=== PATIENT | male | born 1955 | race African-American/Black ===

== ENCOUNTER 2018-01-19 10:21 | Inpatient (IN) | payer BC ==
[2018-01-19] MEDS ORDERED: Pantoprazole 40 MG VIAL ONE (12:26)
[2018-01-19 12:27] LABS: CKMB 8.7 ng/mL (0-6.6); Troponin I 0.703 ng/mL (< 0.028)
[2018-01-19] MEDS ORDERED: Cefepime 2 GM in Sodium Chloride 0.9% 100 ML IVPB SCH (12:30)
[2018-01-19 12:42] LABS: White Blood Cell (WBC) Count 7.6 thou/uL (4.8-10.8)
[2018-01-19 12:43] LABS: Hemoglobin 5.2 g/dL (14.0-18.0); Mean Corpuscular HGB CONC 31.4 g/dL (32.0-36.0); Mean Corpuscular Hemoglobin 32.3 pg (27.0-31.0); Mean Platelet Volume 6.4 fL (7.4-10.4); Platelet Count 195 thou/uL (130-400); RBC Distribution Width 15.1 % (11.5-14.5)
[2018-01-19 12:46] LABS: Anisocytosis MODERATE=16-30 cells (100X) (0-5/hpf); Band 5 % (5-11); Eosinophils 1 % (0-10); Lymphocytes 31 % (21-51); MDiff Complete? YES; Monocytes 8 % (0-10); Neutrophil 55 % (42-75)
[2018-01-19 12:47] LABS: Hypochromia MODERATE=16-30 cells (100X) (0-5/hpf); Large Platelets SLIGHT; Polychromasia SLIGHT = 2-3 cells (100X) (0-2/hpf)
--- NOTE | 2018-01-19 13:08 | RAD ---
CHEST 1 VIEW: HISTORY: Dyspnea. FINDINGS: Cardiac silhouette is magnified by projection. Pulmonary vasculature upper limits of normal. Medias tinum is midline. No lobar consolidation or evidence of pneumothorax. Old left rib fractures. Card iac monitor leads overlie the chest. IMPRESSION: No active cardiopulmonary abnormalities are demonstrated. POS: VANDANAH
[2018-01-19] MEDS ORDERED: Albuterol Sulfate 2.5 mg/3 ml Neb NEB PRN (13:58)
--- NOTE | 2018-01-19 14:41 | PDOC.FPRHP ---
- History of Present Illness Chief Complaint: SOB History of Present Illness: Mr. Sanchez presents to the ED with continued shortness of breath with activity and non-productive cough after being treated for CAP with azithromycin outpatient. He had some non-bloody diarrhea a week ago as well. He denies any chest pain, palpitations, syncope, weakness, fever chills, abdominal pain, or melena. He has never had a colonoscopy. ED Course: IV protonix, CBC, CMP, Trop, CXR, Cefepime, Protonix - Allergies/Adverse Reactions Allergies Allergy/AdvReac Type Severity Reaction Status Date / Time No Known Drug Allergies Allergy Verified 01/19/18 12:12 - Home Medications Medication Instructions Recorded Confirmed Type Amlodipine Besylate/Benazepril 1 cap PO DAILY 01/19/18 01/19/18 History [amLODIPine Besylate/Benazepril] Pravastatin Sodium [Pravachol] 1 tab PO HS 01/19/18 01/19/18 History Triamterene/Hydrochlorothiazid 1 tab PO DAILY 01/19/18 01/19/18 History [Dyazide] cloNIDine HCl 1 tab PO TID 01/19/18 01/19/18 History - History PMHx: HTN, HLD PSHx: none FHx: DMII Social: 30 pk year smoking, beer a day, no drugs - Review of Systems General: denies: fever/chills, weight/appetite/sleep changes Eyes: denies: vision changes ENT: reports: nasal congestion. denies: rhinorrhea Respiratory: reports: cough, congestion, shortness of breath, exercise intolerance Cardiovascular: denies: chest pain, palpitation, edema Gastrointestinal: reports: diarrhea. denies: nausea, vomiting, abdominal pain Genitourinary: denies: incontinence, dysuria, polyuria Skin: denies: rashes, lesions Musculoskeletal: denies: pain, tenderness Neurological: denies: numbness, syncope, weakness - Vital signs BP: [140/83] HR: [109] RR: [20] Tmax: [98.3] Pox: [97]% on [RA] Wt: [114kg] - Physical Exam Constitutional: well developed, other (labored breathing) HEENT: normocephalic and atraumatic, grossly normal vision, grossly normal hearing, MMM Neck: supple, trachea midline Chest: no-tender to palpation, no lesions Heart: RRR (tachycardic), normal S1/S2, no murmurs/rubs/gallops, no edema Lungs: no respiratory distress, other (L sided crackles, diffuse mild wheezing and diminished breath sounds) Abdomen: soft, non-tender, no masses/distention Musculoskeletal: normal structure, normal tone, ROM grossly normal Neurological: no focal deficit, normal sensation Skin: no rash/lesions, good turgor Heme/Lymphatic: no unusual bruising or bleeding, no purpura, no petechia FMR H&P: Results - Labs Result Diagrams: 01/19/18 10:50 01/19/18 10:50 Lab results: WBC 7.6 thou/uL (4.8-10.8) 01/19/18 10:50 Hgb 5.2 g/dL (14.0-18.0) L* 01/19/18 10:50 Hct 16.5 % (42.0-52.0) L 01/19/18 10:50 MCV 103.0 fL (78.0-98.0) H 01/19/18 10:50 Plt Count 195 thou/uL (130-400) 01/19/18 10:50 Band Neuts % (Manual) 5 % (5-11) 01/19/18 10:50 CK-MB (CK-2) 8.7 ng/mL (0-6.6) H* 01/19/18 10:50 FMR H&P: A/P - Problem List (1) COPD exacerbation Current Visit: Yes Status: Acute Code(s): J44.1 - CHRONIC OBSTRUCTIVE PULMONARY DISEASE W (ACUTE) EXACERBATION (2) Pneumonia Current Visit: Yes Status: Acute Code(s): J18.9 - PNEUMONIA, UNSPECIFIED ORGANISM (3) Anemia Current Visit: Yes Status: Acute Code(s): D64.9 - ANEMIA, UNSPECIFIED (4) Elevated troponin Current Visit: Yes Status: Acute Code(s): R74.8 - ABNORMAL LEVELS OF OTHER SERUM ENZYMES (5) HTN (hypertension) Current Visit: Yes Status: Acute Code(s): I10 - ESSENTIAL (PRIMARY) HYPERTENSION (6) HLD (hyperlipidemia) Current Visit: Yes Status: Acute Code(s): E78.5 - HYPERLIPIDEMIA, UNSPECIFIED - Plan COPD exacerbation - most likely considering lung exam and smoking history - Levaquin, Duonebs Q4H, ventolin q2hr prn, O2 prn, Prednisone - monitor respiratory status Pneumonia - failed outpatient treatment, suspicious CXR - DC azithromycin, start levaquin - Monitor CBC, obtain procal Symptomatic Anemia - unsure of cause, deficiency vs blood loss - Retic/smear/ferritin, daily CBC - FOBT pos, consider GI consult - T&C 2 units PRBCs, transfuse, give lasix, followed 6hrs by a hemagram - monitor on telemetry, check vs Q4hr Elevated troponin - unlikely ischemic in nature, most likely demand 2/2 anemia - Stat EKG - trend troponins HTN - continue home meds HLD - lipid panel in AM Code: full PPX: SCDs, protonix Disposition/LOS: Admit to inpatient telemetry for evaluation of anemia, transfuse blood products , treat COPD exac/pna FMR H&P: Upper Level - Pertinent history Agree with fall internship resident history. GEN: NAD, obese CARDIO: RRR, No MRG RESP: Lungs CTAB, mild diffuse wheezes, no ronchi ABDOMEN: soft, notender, no R/G NEURO: normal strength in all extremities. No cranial nerve deficits RECTAL: observed exam without blood or dark stool. - Plan Date/Time: 01/19/18 1313 IRao , have evaluated this patient and agree with findings/plan as outlined by fall internship resident. Pertinent changes/additions are listed here. Anemia - Likely 2/2 acute blood loss as he is FOBT +, but will obtain studies to further investigate. - Initial Hb 5.9. Will order 2PRBCs and continue to trend H/H. - Admit to tele. On Protonix and NPO. Consult GI Mild COPD exacerbation - Does have a 40 yr history of smoking and diffuse wheezing on exam. Has recently been treated for CAP, so will continue antibiotics and prednisone/ albuterol nebs. - Order procal as XR showed Pleural Effusion but read as no acute process. May benefit from a dose of Lasix. Elevated troponin - Most likely demand 2/2 anemia, but will trend. - EKG Ordered. HTN - continue home meds HLD - lipid panel in AM, on Statin therapy. DISPO: inpatient Code: full PPX: Anticoag CI, SCDs, protonix Attending Addendum - Attending Addendum Date/Time: 01/19/18 [id number] I personally evaluated the patient and discussed the management with Dr. Soto. I agree with the History, Examination, Assessment and Plan documented above with any addition or exceptions noted below.
[2018-01-19] MEDS: Pantoprazole 80 MG, Admixture Fee 1 EACH in Sodium Chloride 0.9% 100 ML IVP SCH ×2 (14:43→22:20)
[2018-01-19 14:45] VITALS: BMI 39.6
[2018-01-19] MEDS: cloNIDine 0.2 MG TAB PO SCH ×2 (15:34→21:03)
[2018-01-19 16:11] LABS: ALT (SGPT) 34 U/L (8-55); AST (SGOT) 29 U/L (5-34); Albumin 3.8 g/dL (3.4-4.8); Alkaline Phosphatase 61 U/L (40-150); Anion Gap 13 mmol/L (10-20); BUN (Urea Nitrogen) 10 mg/dL (8.4-25.7); Bilirubin, Total 0.3 mg/dL (0.2-1.2); Calc. Creatinine Clearance 164 mL/min (70-130); Calcium 8.7 mg/dL (7.8-10.44); Carbon Dioxide 22 mmol/L (23-31); Chloride 107 mmol/L (98-107); Estimated GFR-MDRD Greater than 90; Globulin 2.7 g/dL (2.4-3.5); Glucose 116 mg/dL (80-115); Potassium 3.6 mmol/L (3.5-5.1); Protein, Total 6.5 g/dL (5.8-8.1); Sodium 138 mmol/L (136-145)
[2018-01-19 17:40] LABS: INR-International Normal Ratio 1.1; PTT 35.1 SEC (22.9-36.1); Prothrombin Time 14.2 SEC (12.0-14.7)
[2018-01-19 17:54] LABS: Iron Binding Capacity, Total 325 mcg/dL (261-462)
[2018-01-19 17:55] LABS: Iron 38 ug/dL (65-175)
[2018-01-19 18:16] LABS: Troponin I 0.681 ng/mL (< 0.028)
[2018-01-19] MEDS ORDERED: GoLYTELY 4,000 ml Bottle PO SCH (19:00)
[2018-01-19] MEDS ORDERED: Furosemide 40 MG/4 ML VIAL SLOW IVP SCH (19:45)
[2018-01-19 20:47] LABS: Troponin I 0.822 ng/mL (< 0.028)
[2018-01-19] MEDS: Atorvastatin Calcium 10 MG TAB PO SCH (21:02)
[2018-01-19] MEDS ORDERED: Furosemide 40 MG TAB PO SCH (22:00)
[2018-01-19 23:25] LABS: Troponin I 0.952 ng/mL (< 0.028)
[2018-01-20 01:52] LABS: Reticulocyte Count 10.5 % (0.5-1.5)
[2018-01-20 02:08] LABS: Anisocytosis SLIGHT = 6-15 cells (100X) (0-5/hpf); Band 1 % (5-11); Eosinophils 2 % (0-10); Hemoglobin 7.2 g/dL (14.0-18.0); Lymphocytes 22 % (21-51); MDiff Complete? YES; Mean Corpuscular HGB CONC 32.2 g/dL (32.0-36.0); Mean Corpuscular Hemoglobin 31.4 pg (27.0-31.0); Mean Corpuscular Volume 97.6 fL (78.0-98.0); Mean Platelet Volume 6.3 fL (7.4-10.4); Monocytes 6 % (0-10); Myelocyte 1 % (0-0); Neutrophil 68 % (42-75); Nucleated RBC 3 % (0); PLT Morphology Comment Appears Adequate; Platelet Count 188 thou/uL (130-400); Polychromasia MARKED = >4 cells (100X) (0-2/hpf); RBC Distribution Width 17.7 % (11.5-14.5); Red Blood Cell (RBC) Count 2.29 mill/uL (4.70-6.10); White Blood Cell (WBC) Count 9.3 thou/uL (4.8-10.8)
--- NOTE | 2018-01-20 02:44 | CON ---
DATE OF CONSULTATION: 01/19/2018 REASON FOR CONSULTATION: Symptomatic anemia. CONSULTING PHYSICIAN: Dr. Kevin Soto. HISTORY OF PRESENT ILLNESS: The patient is a 62-year-old -[place] male with past medical his tory of hypertension, hyperlipidemia, and tobacco abuse who initially presented with complaints of in creased cough and shortness of breath. He states that he was in his usual state of health until appr oximately 1-2 weeks ago when he experienced increased cough that prompted him to see his primary care physician. He was subsequently diagnosed with a community-acquired pneumonia and prescribed azithro mycin as an outpatient; however, his cough continued despite antibiotic administration, which then pr ompted him to seek additional health long term acute care registered nurse at [facility]. While in the ER, he was noted to have a significantly decreased H&H when compared to baseline and ultimately admitted to the [facility] for further evaluation. Upon questioning the patient, he states that his cough over the last few weeks was associated with increased shortness of breath and generalized weakness that was intermitten t in nature, but did cause some functional limitations; however, he denies any nausea, vomiting, feve rs, chills, abdominal pain, GI bleeding, dysphagia, odynophagia, weight loss, or constipation. He di d have an episode of diarrhea approximately 3-4 days ago. It was characterized he has having 2 semis olid bowel movements per day over the next 2-3 days with no special maneuvers in order to defecate. This has since improved. There was no occurrence upon interview today. REVIEW OF SYSTEMS: A 10-category review of systems was obtained with all responses negative except f or the pertinent positives as listed in the HPI. PAST MEDICAL HISTORY: As per HPI. PAST SURGICAL HISTORY: None. FAMILY HISTORY: Denies any GI malignancy. SOCIAL HISTORY: Drinks approximately 1-2 beers daily, has a [id number] smoking history, but denies any illicit drug use. OUTPATIENT MEDICATIONS: Reviewed. ALLERGIES: No known drug allergies. PHYSICAL EXAMINATION: VITAL SIGNS: Temperature is 98.4, pulse 92, blood pressure 129/60, respiratory rate 16, satting 99% on room air. GENERAL: The patient was lying in bed in no acute distress. Alert and oriented x4. HEENT: No scleral icterus noted. NECK: Supple. No JVD noted. CARDIOVASCULAR: Regular rate and rhythm with no discernible murmurs, gallops, or rubs. LUNGS: Clear to auscultation bilaterally with no discernible wheezes or rales. ABDOMEN: Normoactive bowel sounds, soft, nondistended. Mild tenderness to palpation in the midepiga stric region. EXTREMITIES: No cyanosis, clubbing, or edema. LABORATORY DATA: CBC with a white blood cell count of 7.6, hemoglobin 5.2, hematocrit 16.5, platelet s 195,000. INR 1.1. Chemistry with sodium of 138, potassium 3.6, chloride 107, CO2 of 22, BUN 10, c reatinine 0.77, glucose 116. Iron 38, TIBC 325, ferritin 73, AST 29, ALT 34, alkaline phosphatase 61 , total bilirubin 0.3, albumin 3.8. Troponin up trending from 0.68-0.82. IMAGING DATA: Chest x-ray obtained on 01/19/2018 showed no active cardiopulmonary abnormalities. ASSESSMENT AND PLAN: The patient is a 62-year-old male with past medical history of hypertension, hy perlipidemia, and tobacco abuse, presenting with symptomatic anemia. Symptomatic anemia: The patient has been struggling with a 2-week history of increased shortness of breath and cough that was initially diagnosed as a community-acquired pneumonia; however, after lack of response to antibiotic administration, he sought health care assistance at [facility] and not ed to have a significantly decreased H and H. Upon interview of the patient today, he denies any yoly ology of overt bleeding, whether would be via scan or GI tract. Upon review of his iron indices whil e his iron may be mildly low, there is no abnormality seen in TIBC or ferritin making the likelihood of a chronic process or chronic iron deficiency anemia, less likely, in addition to an elevated degre e of approximately 103. Again, leaning away from a diagnosis of iron deficiency anemia. However, gi sima his significant anemia on admission be ruled out at this time with endoscopic intervention indicated for a possible source of anemia. RECOMMENDATIONS: 1. We would continue to trend H&H and transfuse as necessary to maintain an H&H of 10/28. 2. Continue to monitor clinically for signs of active GI bleeding. 3. We will place patient on a clear liquid diet tonight with n.p.o. at midnight in preparation for b oth EGD and colonoscopy to be performed tomorrow morning. 4. If both the EGD and colonoscopy are negative for overt signs of bleeding things that can co ntribute to his anemia, I would strongly consider non-GI origin of his anemia given the macrocytic na ture and relatively normal iron indices. We will continue to follow. Please call with any additional questions.
[2018-01-20 04:29] LABS: ALT (SGPT) 35 U/L (8-55); AST (SGOT) 27 U/L (5-34); Albumin 3.8 g/dL (3.4-4.8); Alkaline Phosphatase 66 U/L (40-150); Anion Gap 14 mmol/L (10-20); BUN (Urea Nitrogen) 7 mg/dL (8.4-25.7); Calc. Creatinine Clearance 154 mL/min (70-130); Calcium 8.6 mg/dL (7.8-10.44); Carbon Dioxide 23 mmol/L (23-31); Cardiac Risk 3.9 (Less than 4.5); Chloride 106 mmol/L (98-107); Cholesterol 189 mg/dl (< 200 Desired); Estimated GFR-MDRD Greater than 90; Globulin 2.8 g/dL (2.4-3.5); Glucose 114 mg/dL (80-115); HDL Cholesterol 49 mg/dL (>60 Neg Risk); LDL Cholesterol, Calculated 118 mg/dL; Potassium 3.4 mmol/L (3.5-5.1); Protein, Total 6.6 g/dL (5.8-8.1); Sodium 140 mmol/L (136-145); Triglycerides 112 mg/dL (Less than 150)
[2018-01-20 04:31] LABS: Troponin I 1.023 ng/mL (< 0.028)
[2018-01-20 06:26] LABS: #Eosinphils 0.2 thou/uL (0.0-0.7); #Lymphocytes 1.9 thou/uL (1.20-3.40); #Monocytes 0.8 thou/uL (0.11-0.59); #Neutrophils 5.2 thou/uL (1.40-6.50); %Basophils 0.3 % (0.0-1.0); %Eosinophils 1.9 % (0.0-10.0); %Lymphocytes 23.1 % (21.0-51.0); %Monocytes 9.8 % (0.0-10.0); Anisocytosis SLIGHT = 6-15 cells (100X) (0-5/hpf); Hemoglobin 7.1 g/dL (14.0-18.0); MDiff Complete? YES; Mean Corpuscular HGB CONC 32.6 g/dL (32.0-36.0); Mean Corpuscular Hemoglobin 31.8 pg (27.0-31.0); Mean Corpuscular Volume 97.5 fL (78.0-98.0); Mean Platelet Volume 6.6 fL (7.4-10.4); Platelet Count 186 thou/uL (130-400); Polychromasia MARKED = >4 cells (100X) (0-2/hpf); RBC Distribution Width 17.4 % (11.5-14.5); Red Blood Cell (RBC) Count 2.24 mill/uL (4.70-6.10); White Blood Cell (WBC) Count 8.1 thou/uL (4.8-10.8)
--- NOTE | 2018-01-20 06:37 | PDOC.FM ---
- Subjective Subjective: Mr. Sanchez is feeling much better today, his SOB and cough have improved. He denies any chest pain, palpitations, weakness. He finished his bowel prep. - Objective Vital Signs & Weight: Vital Signs (12 hours) Temp Pulse Pulse Resp BP BP BP 01/20/18 06:28 98 16 01/20/18 04:00 99.0 F 92 18 154/56 H 01/20/18 02:23 90 16 01/19/18 23:30 98.7 F 84 16 135/75 01/19/18 22:23 92 16 01/19/18 21:03 129/60 01/19/18 20:55 98.8 F 83 18 129/60 01/19/18 20:40 98.3 F 89 20 137/64 01/19/18 19:40 98.4 F 89 17 141/65 H 01/19/18 19:11 96 16 Pulse Ox 01/20/18 06:28 100 01/20/18 04:00 96 01/20/18 02:23 110 H 01/19/18 23:30 99 01/19/18 22:23 99 01/19/18 21:03 01/19/18 20:55 99 01/19/18 20:40 99 01/19/18 19:40 100 01/19/18 19:11 98 Weight Weight 114.759 kg I&O: 01/18/18 01/19/18 01/20/18 06:59 06:59 06:59 Intake Total 6600 Output Total 1000 Balance 5600 Result Diagrams: 01/20/18 03:32 01/20/18 03:31 <Kevin Soto - Last Filed: 01/20/18 09:20> - Objective Vital Signs & Weight: Vital Signs (12 hours) Temp Pulse Resp BP Pulse Ox 01/20/18 12:20 98.6 F 99 18 151/59 H 99 01/20/18 10:18 84 16 100 01/20/18 08:46 98.8 F 98 18 144/66 H 97 01/20/18 06:28 98 16 100 01/20/18 04:00 99.0 F 92 18 154/56 H 96 01/20/18 02:23 90 16 110 H Weight Weight 114.759 kg I&O: 01/19/18 01/20/18 01/21/18 06:59 06:59 06:59 Intake Total 6600 Output Total 1000 Balance 5600 Result Diagrams: 01/20/18 03:32 01/20/18 03:31 <Pippa Martinez - Last Filed: 01/20/18 13:15> Phys Exam - Physical Examination Constitutional: NAD HEENT: moist MMs Respiratory: wheezing present (wheezing improved, decreased breath sounds b/l ) Cardiovascular: RRR, no significant murmur, no rub Gastrointestinal: soft, no distention Musculoskeletal: no edema, pulses present Neurological: non-focal, normal sensation Psychiatric: normal affect Skin: no rash <Kevin Soto - Last Filed: 01/20/18 09:20> Dx/Plan (1) COPD exacerbation Code(s): J44.1 - CHRONIC OBSTRUCTIVE PULMONARY DISEASE W (ACUTE) EXACERBATION Status: Acute (2) Pneumonia Code(s): J18.9 - PNEUMONIA, UNSPECIFIED ORGANISM Status: Acute (3) Anemia Code(s): D64.9 - ANEMIA, UNSPECIFIED Status: Acute (4) Elevated troponin Code(s): R74.8 - ABNORMAL LEVELS OF OTHER SERUM ENZYMES Status: Acute (5) HTN (hypertension) Code(s): I10 - ESSENTIAL (PRIMARY) HYPERTENSION Status: Acute (6) HLD (hyperlipidemia) Code(s): E78.5 - HYPERLIPIDEMIA, UNSPECIFIED Status: Acute - Plan Plan: COPD exacerbation - most likely considering lung exam and smoking history - Levaquin, Duonebs Q4H, ventolin q2hr prn, O2 prn, Prednisone - monitor respiratory status Pneumonia - failed outpatient treatment, suspicious CXR - DC azithromycin, start levaquin - procal neg - Monitor CBC Symptomatic Anemia - unsure of cause, deficiency vs blood loss - Macrocytic, smear pending, daily CBC - iron studies relatively normal - GI to perform upper and lower scopes today - s/p 2 units PRBC, Hb increased to 7.2 - monitor on telemetry, check vs Q4hr Elevated troponin - unlikely ischemic in nature, most likely demand 2/2 anemia - EKG WNL, no active chest pain - trend troponins, consider cards consult HTN - continue home meds HLD - lipid panel neg Code: full PPX: SCDs, protonix Dispo: GI to scope today, await results. transfuse for Hb less than 7 <Kevin Soto - Last Filed: 01/20/18 09:20> Attending Addendum - Attending Addendum Date/Time: 01/20/18 1312 I personally evaluated the patient and discussed the management with Dr. Soto I agree with the History, Examination, Assessment and Plan documented above with any addition or exceptions noted below- Patient feeling better. Finishing prep for colonoscopy. Afebrile VSS. A/P: 1) CAP with COPD exacerbation- continue abx, nebs, prednisone. 2) Anemia- macrocytic- uncertain etiology with relatively normal iron indices. Appreciate GI input. Plan for EGD/colonoscopy today to rule GI losses as cause. If negative, will check vit B12, folate and Hgb electrophoresis. <Pippa Martinez - Last Filed: 01/20/18 13:15>
[2018-01-20 07:02] LABS: Troponin I 1.095 ng/mL (< 0.028)
[2018-01-20] MEDS: Enoxaparin Sodium 40 MG/0.4 ML SYRINGE SC SCH (09:17)
[2018-01-20] MEDS: Amlodipine 5 mg/Benazepril 20 mg CAP PO SCH (09:17)
[2018-01-20] MEDS: predniSONE 20 MG TAB PO SCH (09:18)
[2018-01-20] MEDS: Triamterene/Hydrochlorothiazide 37.5 mg/25 mg Tablet PO SCH (09:18)
[2018-01-20] MEDS: cloNIDine 0.2 MG TAB PO SCH ×3 (09:18→20:54)
[2018-01-20 10:04] LABS: Troponin I 1.013 ng/mL (< 0.028)
[2018-01-20] MEDS ORDERED: Lidocaine 1% PF 5 ML VIAL ONE (11:34)
[2018-01-20] MEDS ORDERED: PROPOFOL 200 MG/20 ML VIAL ONE (11:34)
[2018-01-20 13:10] LABS: Critical Call Chem Troponin I RESULT DECREASING; Troponin I 0.932 ng/mL (< 0.028)
[2018-01-20 13:30] LABS: Folate (Folic Acid) 13.3 ng/mL (7.0-31.4)
--- NOTE | 2018-01-20 15:59 | OP ---
DATE OF PROCEDURE: 01/20/2018. PROCEDURE PERFORMED: EGD with biopsy, colonoscopy with biopsies and polypectomy. INDICATION FOR PROCEDURE: Unexplained anemia. DESCRIPTION OF PROCEDURE: After the risks and benefits of the procedure were explained to the patient including risk of bleeding, infection, perforation, reactions to anesthesia, aspiration and/or pain, informed consent was obtained. The patient was then taken to the endoscopy suite where deep sedation was administered via propofol and anesthesia support. Once adequate sedation was achieved, the standard gastroscope was introduced into the mouth with intubation of the esophagus, stomach and the proximal small intestine with the findings listed below. Upon completion of this portion of the procedure, all equipment was removed. The patient was then rotated approximately 180 degrees and after an external examination, the standard colonoscope was introduced into the rectum and advanced to the cecum with mild difficulty requiring manual abdominal pressure to facilitate passage of the scope. The quality of the prep was excellent. The patient tolerated the procedures well with no immediate perioperative complications. After completion of the colonoscopy, the patient was then taken to PACU in satisfactory condition. EGD FINDINGS: Esophagus: Normal appearing mucosa was seen in the proximal, mid and distal esophagus. An irregular Z-line was noted at the gastroesophageal junction with a minimal amount of salmon-colored mucosa extending proximally from the GE junction. However, this salmon-colored mucosa did not exceed 5 mm in length and was therefore not biopsied for the evaluation of Valadez's esophagus (per guidelines). Otherwise, there was no evidence of erosions, ulcerations, mass lesions or active/recent bleeding. Stomach: Normal appearing mucosa was seen in the gastric cardia, fundus, body along the greater curvature, antrum and incisura. There was no evidence of erosions, ulcerations, mass lesions or active/recent bleeding. Duodenum: Normal appearing mucosa was seen both in the duodenal bulb and second portion of the duodenum. There was no evidence of erosions, ulcerations , mass lesions or active/recent bleeding. Random duodenal biopsies were taken for evaluation of possible celiac sprue. IMPRESSION: 1. Irregular Z-line seen in the distal esophagus with salmon-colored mucosa reminiscent of Valadez's esophagus, but not meeting criteria. 2. Otherwise, normal upper endoscopy. COLONOSCOPY FINDINGS: Digital rectal examination: Small external hemorrhoids were seen on external exam. Colon findings: A protuberance of tissue was seen extending out from the appendiceal orifice itself reminiscent of an everted appendix; however, it did display some mild discoloration/melanosis along the superior aspect of it, so biopsies were taken for evaluation and placed in a specimen jar for future reference. Otherwise, normal mucosa was seen in the cecum as well as the ileocecal valve. Normal appearing mucosa was also seen in the ascending colon other than multiple colonic diverticula that did not display any evidence of active/recent bleeding. Four 2-4 mm polyps were seen in the transverse colon and completely removed with a combination of biopsy forceps and cold snare polypectomy. Normal appearing mucosa was also seen in the descending colon. Two 3-4 mm polyps were seen in the sigmoid colon and also removed with combination of cold biopsy forceps and cold snare polypectomy. Normal appearing mucosa was also seen in the rectum; however, small internal hemorrhoids were seen on rectal retroflexion. IMPRESSION: 1. Everted tissue at the appendiceal orifice consistent with an everted appendix; however discoloration was concerning for other process, now status post biopsies. 2. Mild darkening of the entire colonic mucosa in a leopard skin pattern consistent with mild melanosis coli. 3. Four 2-4 mm transverse colon polyps, status post combination of biopsy forceps and cold snare polypectomy. 4. Two 3-4 mm sigmoid colon polyps, status post combination of biopsy forceps and cold snare polypectomy. 5. Internal and external hemorrhoids. 6. No etiology for the patient's anemia was seen during this portion of the examination. RECOMMENDATIONS: 1. We would continue to trend H&H and transfuse as necessary to maintain an H& H of 7/21. 2. Continue to monitor clinically for signs of active gastrointestinal bleeding. 3. We will follow up on biopsy results with future colonoscopy interval depending on pathology. 4. Given the macrocytic anemia on admission and relatively normal iron indices , a chronic GI blood loss picture is less likely at this time. With the negative EGD and colonoscopy today, I would consider pursuing evaluation of anemia from a non-GI source. We will sign off at this time. Please call with any additional questions. [facility]
[2018-01-20] MEDS: Atorvastatin Calcium 10 MG TAB PO SCH (20:54)
[2018-01-21 05:33] LABS: Hemoglobin 6.4 g/dL (14.0-18.0)
--- NOTE | 2018-01-21 06:12 | PDOC.FM ---
- Subjective Subjective: Mr. Sanchez has no new complaints today, reported improvement in SOB and cough. No chest pain, no identifiable active source of bleeding. - Objective Vital Signs & Weight: Vital Signs (12 hours) Temp Pulse Resp BP BP Pulse Ox 01/21/18 04:00 98.1 F 79 12 126/69 99 01/21/18 02:01 77 18 100 01/20/18 21:44 77 18 100 01/20/18 20:58 99 01/20/18 20:54 127/59 L 01/20/18 20:00 98.2 F 90 18 127/59 L 99 01/20/18 19:23 80 18 100 Weight Weight 114.759 kg I&O: 01/19/18 01/20/18 01/21/18 06:59 06:59 06:59 Intake Total 6600 1480 Output Total 1000 560 Balance 5600 920 Result Diagrams: 01/21/18 05:12 01/20/18 03:31 <Kevin Soto - Last Filed: 01/21/18 07:41> - Objective Vital Signs & Weight: Vital Signs (12 hours) Temp Pulse Pulse Resp BP BP BP 01/21/18 19:01 94 18 01/21/18 15:14 98.2 F 103 H 18 146/65 H 01/21/18 15:11 146/65 H 01/21/18 12:50 76 16 01/21/18 12:03 98.2 F 84 18 143/65 H 01/21/18 11:43 98.2 F 74 18 121/57 L 01/21/18 09:48 127/59 L 01/21/18 09:00 98.2 F 70 16 141/63 H 01/21/18 08:45 97.9 F 84 16 140/64 Pulse Ox 01/21/18 19:01 99 01/21/18 15:14 97 01/21/18 15:11 01/21/18 12:50 97 01/21/18 12:03 01/21/18 11:43 94 L 01/21/18 09:48 01/21/18 09:00 01/21/18 08:45 Weight Weight 114.759 kg Most Recent Monitor Data Heart Rate from ECG 84 I&O: 10/13/18 10/14/18 10/15/18 06:59 06:59 06:59 Intake Total 6600 1960 1310 Output Total 2275 425 8135 Balance 5600 1400 110 Result Diagrams: 01/21/18 14:37 01/20/18 03:31 <Pippa Martinez - Last Filed: 01/21/18 20:13> Phys Exam - Physical Examination Constitutional: NAD HEENT: moist MMs Respiratory: wheezing present (improved ), clear to auscultation bilateral Cardiovascular: RRR, no significant murmur Gastrointestinal: soft, no distention Musculoskeletal: no edema Neurological: non-focal Skin: no rash <Kevin Soto - Last Filed: 01/21/18 07:41> Dx/Plan (1) COPD exacerbation Code(s): J44.1 - CHRONIC OBSTRUCTIVE PULMONARY DISEASE W (ACUTE) EXACERBATION Status: Acute (2) Pneumonia Code(s): J18.9 - PNEUMONIA, UNSPECIFIED ORGANISM Status: Acute (3) Anemia Code(s): D64.9 - ANEMIA, UNSPECIFIED Status: Acute (4) Elevated troponin Code(s): R74.8 - ABNORMAL LEVELS OF OTHER SERUM ENZYMES Status: Acute (5) HTN (hypertension) Code(s): I10 - ESSENTIAL (PRIMARY) HYPERTENSION Status: Acute (6) HLD (hyperlipidemia) Code(s): E78.5 - HYPERLIPIDEMIA, UNSPECIFIED Status: Acute - Plan Plan: COPD exacerbation - most likely considering lung exam and smoking history - Levaquin, Duonebs spaced out to Q6H, ventolin q2hr prn, O2 prn, Prednisone - monitor respiratory status Pneumonia - failed outpatient treatment, suspicious CXR - DC azithromycin, start levaquin - procal neg - Monitor CBC Symptomatic Anemia - unsure of cause, deficiency vs blood loss - Macrocytic, smear pending, daily CBC - iron studies relatively normal, B12 and folate WNL - Hb electrophoresis pending - GI evaluation negative for an acute bleed - consider heme consult - s/p 2 units PRBC, Hb increased to 7.2, down to 6.1 today, transfuse 2 more units - monitor on telemetry, check vs Q4hr Elevated troponin - unlikely ischemic in nature, most likely demand 2/2 anemia - EKG WNL, no active chest pain - troponins down trended HTN - continue home meds HLD - lipid panel neg Code: full PPX: SCDs, protonix Dispo: transfuse 2 units today, evaluate for possible cause <Kevin Soto - Last Filed: 01/21/18 07:41> Attending Addendum - Attending Addendum Date/Time: 01/21/182008 I personally evaluated the patient and discussed the management with Dr. Soto. I agree with the History, Examination, Assessment and Plan documented above with any addition or exceptions noted below- Patient without complaints. Afebrile VSS A/P: 1) COPD exacerbation- improved; continue nebs, prednisone. 2) Anemia- Appreciate GI assistance. Endoscopy results noted. H/H decreased today. Will transfuse pRBCs and consult hematology for assistance. Check LDH. Hgb electrophoresis pending. <Pippa Martinez - Last Filed: 01/21/18 20:13>
[2018-01-21] MEDS: Enoxaparin Sodium 40 MG/0.4 ML SYRINGE SC SCH (09:47)
[2018-01-21] MEDS: cloNIDine 0.2 MG TAB PO SCH ×3 (09:48→20:44)
[2018-01-21] MEDS: predniSONE 20 MG TAB PO SCH (09:48)
[2018-01-21] MEDS: Amlodipine 5 mg/Benazepril 20 mg CAP PO SCH (09:48)
[2018-01-21] MEDS: Triamterene/Hydrochlorothiazide 37.5 mg/25 mg Tablet PO SCH (09:49)
[2018-01-21 15:54] LABS: Hemoglobin 8.5 g/dL (14.0-18.0); Mean Corpuscular HGB CONC 32.9 g/dL (32.0-36.0); Mean Corpuscular Hemoglobin 31.3 pg (27.0-31.0); Mean Corpuscular Volume 94.9 fL (78.0-98.0); Mean Platelet Volume 6.6 fL (7.4-10.4); Platelet Count 197 thou/uL (130-400); RBC Distribution Width 16.7 % (11.5-14.5); Red Blood Cell (RBC) Count 2.71 mill/uL (4.70-6.10); White Blood Cell (WBC) Count 9.5 thou/uL (4.8-10.8)
[2018-01-21 16:13] LABS: Anisocytosis SLIGHT = 6-15 cells (100X) (0-5/hpf); Band 2 % (5-11); Hypochromia SLIGHT = 6-15 cells (100X) (0-5/hpf); Lymphocytes 2 % (21-51); MDiff Complete? YES; Monocytes 2 % (0-10); Neutrophil 94 % (42-75); PLT Morphology Comment Appears Adequate
[2018-01-21 16:19] LABS: Reticulocyte Count 8.1 % (0.5-1.5)
[2018-01-21 16:54] LABS: Bilirubin, Direct 0.2 mg/dL (0.1-0.3); Bilirubin, Total 0.4 mg/dL (0.2-1.2)
--- NOTE | 2018-01-21 18:47 | CON ---
DATE OF CONSULTATION: 01/21/2018 REASON FOR CONSULTATION: Anemia. HISTORY: Mr. Sanchez is a 62-year-old -[place] male who was in his usual state of health unti l 1-2 weeks ago and started to have cough and shortness of breath. Symptoms became worse 5 days ago on Monday. At that time, he was seen by a physician and started on azithromycin for presumed pneu monia. However, patient did not have fever any time. Subsequently, he was hospitalized through [facility] room with hemoglobin of 5.4 grams. He was transfused 2 units of packed red blood cells on 01/08. In talking to the blood bank, there was no problem in type and crossmatching. However, the next day on 01/30/2018, his hemoglobin increased from 5.22-7.2. A 24 hours later that is today, his hemoglobin dropped to 6.4. He has so far been given another unit of packed red blood cell transfusio n. WBC at the time of admission was 7.6 with 55% neutrophils, 5 bands and 31% lymphocytes, and 8 mon ocytes. Platelet count was 195. Reticulocyte count on 01/30/2018, which will be after 2 units of pa cked red blood cell transfusion was 10.5%. LDH was done on 01/21/2018 on blood that was obtained on 01/19/2018. The value is 181, which is within normal limits. The question will be if this LDH aroun d 2 days after collection is valid is not. The LDH today is 239. Chemistry profile at admission rashad wed normal BUN, creatinine and electrolytes. Total bilirubin was 0.3, AST 29, ALT 34, and alkaline p hosphatase was 61. The patient underwent upper and lower GI endoscopy which did not show any source of bleeding. The patient has been on amlodipine, pravastatin and Dyazide. These medicines he has be en taking for a long time and no new medicines have been added during the past 2-3 months. He occasi onally takes Aleve. PAST MEDICAL HISTORY: Positive for hypertension and dyslipidemia. Patient denies diabetes. FAMILY HISTORY: Sister has diabetes. There is no history of blood disorders in the family. PERSONAL AND SOCIAL HISTORY: Patient works in [employer] field. He drinks 1-2 beers a day and has 30-pack- year history of smoking. DRUGS WITH ADVERSE EFFECT: None. PHYSICAL EXAMINATION: VITAL SIGNS: The patient had been afebrile throughout the hospital stay so far, pulse 76, respiratio ns 16, blood pressure 143/65. HEENT: Unremarkable. LYMPHATICS: There is no peripheral lymphadenopathy in cervical, supraclavicular, axillary or inguina l area. CHEST: Vesicular breathing. Fascicular breath sounds without rales or rhonchi. Percussion noted eq ual. HEART: Regular rhythm. S1 and S2. No murmur or gallop. ABDOMEN: Soft, without hepatosplenomegaly. Bowel sounds normal. EXTREMITIES: Without pedal edema. LABORATORY DATA AND IMAGING DATA: CBC; retic, LDH and chemistries have been described in history of present illness. Chest x-ray is reported normal. Protime PTT normal. LABORATORY DATA: Peripheral smear was reviewed. He has pronounced polychromasia. Red cells appear normochromic and normocytic. White cells showed normal maturation sequence and there were no immatur e cells. Platelet platelets appear normal. There was 1 nucleated RBC. No fragmented cells were not ed. ASSESSMENT/RECOMMENDATIONS AND DISCUSSION: This patient's clinical picture favors hemolysis. Unusua l findings, although possibly a normal LDH, normal bilirubin and no difficulty typing and crossmatchi ng. I am going to order another set of blood tests including haptoglobin and Jean test. He will b e started on folic acid. He will have daily CBC, retic count, LDH, and liver function studies. The option will be to start him on steroid to have not made a decision on that yet. He might also need a CT scan of abdomen and pelvis looking for splenomegaly or lymphadenopathy. Thanks very much for asking me to participate in this patient's care. The patient will be followed b y Hem/Onc service. Blood transfusions will also be ordered by Hem/Onc service.
[2018-01-21] MEDS: Atorvastatin Calcium 10 MG TAB PO SCH (20:44)
--- NOTE | 2018-01-22 06:13 | PDOC.FM ---
- Subjective Subjective: Mr. Sanchez is resting comfortably in bed drinking contrast for his CT today. He reports no active bleeding sources, no new complaints. - Objective Vital Signs & Weight: Vital Signs (12 hours) Temp Pulse Resp BP Pulse Ox 01/22/18 04:00 98.1 F 70 19 132/63 99 01/22/18 02:20 82 18 95 01/21/18 20:00 98.3 F 95 18 134/63 97 01/21/18 19:01 94 18 99 Weight Weight 111.811 kg Most Recent Monitor Data Heart Rate from ECG 84 I&O: 01/20/18 01/21/18 01/22/18 06:59 06:59 06:59 Intake Total 6600 1960 2510 Output Total 2715 000 6054 Balance 5600 1400 1310 Result Diagrams: 01/22/18 05:20 01/20/18 03:31 Phys Exam - Physical Examination Constitutional: NAD HEENT: moist MMs Respiratory: no wheezing, no rales, no rhonchi, clear to auscultation bilateral Cardiovascular: RRR, no significant murmur, no rub Gastrointestinal: soft, non-tender, no distention Musculoskeletal: no edema Neurological: moves all 4 limbs Psychiatric: normal affect Skin: no rash Dx/Plan (1) COPD exacerbation Code(s): J44.1 - CHRONIC OBSTRUCTIVE PULMONARY DISEASE W (ACUTE) EXACERBATION Status: Acute (2) Pneumonia Code(s): J18.9 - PNEUMONIA, UNSPECIFIED ORGANISM Status: Acute (3) Anemia Code(s): D64.9 - ANEMIA, UNSPECIFIED Status: Acute (4) Elevated troponin Code(s): R74.8 - ABNORMAL LEVELS OF OTHER SERUM ENZYMES Status: Acute (5) HTN (hypertension) Code(s): I10 - ESSENTIAL (PRIMARY) HYPERTENSION Status: Acute (6) HLD (hyperlipidemia) Code(s): E78.5 - HYPERLIPIDEMIA, UNSPECIFIED Status: Acute - Plan Plan: Symptomatic Anemia - unsure of cause, deficiency vs blood loss - Macrocytic, smear pending, daily CBC - iron studies relatively normal, B12 and folate WNL - Hb electrophoresis pending - GI evaluation negative for an acute bleed - Hematology suspecting hemolysis: serum EP, pradip, CT abd/pelvis for lymphadenopathy pending - Hematology to handle blood transfusions - monitor on telemetry, check vs Q4hr Pneumonia - failed outpatient treatment, suspicious CXR - continue Levaquin for 10 days - procal neg - Monitor CBC COPD exacerbation, resolved - most likely considering lung exam and smoking history - Levaquin, Duonebs q12hr prn, ventolin q2hr prn, O2 prn, Prednisone for a total of 5 days - monitor respiratory status Elevated troponin - unlikely ischemic in nature, most likely demand 2/2 anemia - EKG WNL, no active chest pain - troponins down trended HTN - continue home meds HLD - lipid panel neg Code: full PPX: SCDs, protonix Dispo: await lab/imaging results to evaluate for possible cause, monitor Hb
[2018-01-22 06:39] LABS: Band 7 % (5-11); Hemoglobin 7.6 g/dL (14.0-18.0); Lymphocytes 15 % (21-51); MDiff Complete? YES; Mean Corpuscular HGB CONC 32.5 g/dL (32.0-36.0); Mean Corpuscular Hemoglobin 30.7 pg (27.0-31.0); Mean Corpuscular Volume 94.6 fL (78.0-98.0); Mean Platelet Volume 6.6 fL (7.4-10.4); Monocytes 10 % (0-10); Neutrophil 68 % (42-75); Nucleated RBC 1 % (0); Platelet Count 178 thou/uL (130-400); Polychromasia SLIGHT = 2-3 cells (100X) (0-2/hpf); RBC Distribution Width 16.9 % (11.5-14.5); Red Blood Cell (RBC) Count 2.48 mill/uL (4.70-6.10)
[2018-01-22] MEDS: cloNIDine 0.2 MG TAB PO SCH ×3 (08:36→20:30)
[2018-01-22] MEDS: predniSONE 20 MG TAB PO SCH (08:36)
[2018-01-22] MEDS: Triamterene/Hydrochlorothiazide 37.5 mg/25 mg Tablet PO SCH (08:36)
[2018-01-22] MEDS: Folic Acid 1 MG TAB PO SCH (08:36)
[2018-01-22] MEDS: Amlodipine 5 mg/Benazepril 20 mg CAP PO SCH (08:37)
--- NOTE | 2018-01-22 09:41 | CT ---
CT OF CHEST AND ABDOMEN PERFORMED WITH INTRAVENOUS CONTRAST ENHANCEMENT: History: Shortness of breath. Cough. Hemolytic anemia. Evaluation of spleen and lymph nodes. Comparison: CT abdomen and pelvis, 04-22-10 FINDINGS: There is a bullae present in the right upper lobe. There are old left sided rib fractures. There is s ome interstitial change within the left lower lobe appears most compatible with some scar, slightly p rogressed in appearance as compared to the 2011 study. There are no pulmonary nodules or pleural effu sions. There is no significant mediastinal, hilar, or axillary adenopathy. There are coronary artery calcifi cations noted. CT OF ABDOMEN PERFORMED WITH INTRAVENOUS CONTRAST ENHANCEMENT: The liver and spleen are normal in size and appearance. The spleen measures approximately 6 cm. Pancr eas and gallbladder regions are unremarkable. Right and left adrenal glands are normal in appearance. Right and left kidneys are normal in size. Th ere are vascular calcifications but no renal calculi are identified. There is no significant periaort ic or mesenteric adenopathy noted. There are arthritic changes of the spine. No lytic or blastic bony change. IMPRESSION: 1. Normal spleen size. No evidence of any significant adenopathy of the chest or abdomen. 2. Coronary artery calcifications. Other incidental findings as noted above. POS: H
--- NOTE | 2018-01-22 13:47 | PQF ---
CADEN DONNELLYDAYAMI *r [id number] CLINICAL DOCUMENTATION IMPROVEMENT CLARIFICATION FORM: ICD-10 Updated PLEASE DO AN ADDENDUM TO THE PROGRESS NOTE WITH ANY DOCUMENTATION UPDATES OR ADDITIONS AND CARRY THROUGH TO DC SUMMARY. THANK YOU. DATE: 01-22-18 ATTN: DR. HERNANDEZ / DR. JUSTO MAKI Please exercise your independent, professional judgment in responding to the clarification form. Clinical indicators are provided on the bottom of this form for your review Please check appropriate box(s): [ ] DE TYPE 2 [ x] Demand Ischemia [ ] Other diagnosis [ ] Unable to determine In addition, please specify: Present on Admission (POA): [ x] Yes [ ] No [ ] Unable to determine CLINICAL INDICATORS - SIGNS / SYMPTOMS / LABS 10 H&P: ELEVATED TROPONIN - UNLIKELY ISCHEMIC IN NATURE, MOST LIKELY DEMAND 2/2 ANEMIA; LABS: TROPONIN I 01-19 @ 1050 0.703 01-19 @ 1720 0.681 01-19 @ 2004 0.822 01-19 @ 2253 0.952 01-20 @ 0332 1.023 01-20 @ 0602 1.095 01-20 @ 0922 1.013 01-20 @ 1222 0.932 RISKS: 10-12 H&P: HTN; HLD SYMPTOMATIC ANEMIA COMMUNITY ACQUIRED PNA - FAILED OP TREATMENT TREATMENTS: CPOE: CARDIAC MONITORING - TELEMETRY STAT EKG 01-19 ) TREND TROPONIN (01-20/01-19) GI CONSULT (01-19) / ONC CONSULT (01-21) THANK YOU, BAILEY (This form is maintained as a part of the permanent medical record) 2014 [employer]. All Rights Reserved Bailey Bailey, RN, BS [email or web address]
--- NOTE | 2018-01-22 14:40 | ADD-PRG ---
DATE OF SERVICE: 01/22/2018 Please add this as an addendum to the note of Dr. Kevin Soto. Mr. Sanchez was admitted with a COPD exacerbation from which he has made a nice recovery. He was also found to have a profound anemia with negative so far GI workup. We have asked Dr. Cornejo to see h im and he suspects this may be an atypical presentation of hemolytic anemia. We are still awaiting s ome hemolytic studies including haptoglobin and Jean test and we will proceed based on recommendati ons of Hematology.
[2018-01-22 15:29] LABS: Free T4 (Free Thyroxine) 0.95 ng/dL (0.70-1.48)
[2018-01-22 15:31] LABS: Hep C IgG Ab Non-Reactive (NonReactive); Hep C Index 0.06 S/CO (0-0.79); Thyroid Stimulating Hormone 1.1279 uIU/mL (0.35-4.94)
[2018-01-22] MEDS: Atorvastatin Calcium 10 MG TAB PO SCH (20:30)
--- NOTE | 2018-01-23 06:02 | PDOC.FM ---
- Subjective Subjective: Mr. Sanchez is resting comfortably in bed, no complaints at this time. Denies SOB or cough. - Objective Vital Signs & Weight: Vital Signs (12 hours) Temp Pulse Resp BP Pulse Ox 01/23/18 04:00 98.3 F 67 18 129/62 98 01/22/18 19:30 98.2 F 74 18 125/59 L 99 Weight Weight 111.811 kg Most Recent Monitor Data Heart Rate from ECG 84 I&O: 01/21/18 01/22/18 01/23/18 06:59 06:59 06:59 Intake Total 1960 2510 1260 Output Total 560 1200 Balance 1400 1310 1260 Result Diagrams: 01/23/18 05:16 01/20/18 03:31 Phys Exam - Physical Examination Constitutional: NAD HEENT: moist MMs Respiratory: no wheezing, no rales, no rhonchi, clear to auscultation bilateral Cardiovascular: RRR, no significant murmur, no rub Gastrointestinal: soft, no distention Musculoskeletal: no edema Neurological: moves all 4 limbs Psychiatric: normal affect Skin: no rash Dx/Plan (1) COPD exacerbation Code(s): J44.1 - CHRONIC OBSTRUCTIVE PULMONARY DISEASE W (ACUTE) EXACERBATION Status: Acute (2) Pneumonia Code(s): J18.9 - PNEUMONIA, UNSPECIFIED ORGANISM Status: Acute (3) Anemia Code(s): D64.9 - ANEMIA, UNSPECIFIED Status: Acute (4) Elevated troponin Code(s): R74.8 - ABNORMAL LEVELS OF OTHER SERUM ENZYMES Status: Acute (5) HTN (hypertension) Code(s): I10 - ESSENTIAL (PRIMARY) HYPERTENSION Status: Acute (6) HLD (hyperlipidemia) Code(s): E78.5 - HYPERLIPIDEMIA, UNSPECIFIED Status: Acute - Plan Plan: Symptomatic Anemia - unsure of cause, deficiency vs blood loss - Macrocytic, smear pending, daily CBC, iron studies relatively normal, B12 and folate WNL - Hb electrophoresis pending - GI evaluation negative for an acute bleed, CT abd/pelvis neg - Hematology suspecting hemolysis: serum EP, pradip - Hematology to handle blood transfusions, appreciate recs - monitor on telemetry, check vs Q4hr Pneumonia - failed outpatient treatment, suspicious CXR - continue Levaquin for 10 days - procal neg - WBC normal COPD exacerbation, resolved - most likely considering lung exam and smoking history - Levaquin, Duonebs q12hr prn, ventolin q2hr prn, O2 prn, Prednisone for a total of 5 days - monitor respiratory status Elevated troponin - unlikely ischemic in nature, most likely demand 2/2 anemia - EKG WNL, no active chest pain - troponins down trended HTN - continue home meds HLD - lipid panel neg Hyperglycemia - increased with prednisone - consider underlying uncontrolled DMII - consider Mild SSI Code: full PPX: SCDs, protonix Dispo: await lab/imaging results to evaluate for possible cause, monitor Hb
[2018-01-23 06:04] LABS: #Eosinphils 0.1 thou/uL (0.0-0.7); #Lymphocytes 2.8 thou/uL (1.20-3.40); #Monocytes 1.1 thou/uL (0.11-0.59); #Neutrophils 6.1 thou/uL (1.40-6.50); %Basophils 0.2 % (0.0-1.0); %Eosinophils 1.1 % (0.0-10.0); %Lymphocytes 27.8 % (21.0-51.0); %Monocytes 10.6 % (0.0-10.0); %Neutrophils 60.4 % (42.0-75.0); Hemoglobin 8.2 g/dL (14.0-18.0); Mean Corpuscular HGB CONC 31.9 g/dL (32.0-36.0); Mean Corpuscular Hemoglobin 30.9 pg (27.0-31.0); Mean Corpuscular Volume 96.8 fL (78.0-98.0); Mean Platelet Volume 6.7 fL (7.4-10.4); Platelet Count 192 thou/uL (130-400); RBC Distribution Width 16.4 % (11.5-14.5); Red Blood Cell (RBC) Count 2.66 mill/uL (4.70-6.10); White Blood Cell (WBC) Count 10.1 thou/uL (4.8-10.8)
[2018-01-23] MEDS: Amlodipine 5 mg/Benazepril 20 mg CAP PO SCH (08:57)
[2018-01-23] MEDS: Triamterene/Hydrochlorothiazide 37.5 mg/25 mg Tablet PO SCH (08:58)
[2018-01-23] MEDS: predniSONE 20 MG TAB PO SCH (08:58)
[2018-01-23] MEDS: cloNIDine 0.2 MG TAB PO SCH (08:58)
[2018-01-23] MEDS: Folic Acid 1 MG TAB PO SCH (08:58)
--- NOTE | 2018-01-23 11:38 | PRG ---
DATE OF SERVICE: 01/23/2018 SUBJECTIVE: Mr. Sanchez continues to look and feel well. He has greatly recovered from his chronic o bstructive pulmonary disease exacerbation. We are still in the process of working up his anemia, but I believe this could likely be continued and completed as an outpatient. His abdominal CT showed a normal spleen and no adenopathy of the chest or abdomen. Likely he will be discharged later today to complete anemia workup as an outpatient.
[2018-01-23 14:44] VITALS: BP 145/63; TEMP 97.9
[2018-01-23 15:17] LABS: Hemoglobin A 97.7 % (96.4-98.8); Hemoglobin A2 2.3 % (1.8-3.2); Hemoglobin F 0 % (0.0-2.0); Interpretation Note: (.)
[2018-01-24 07:31] LABS: Haptoglobin 257 mg/dL (34-200)
--- NOTE | 2018-01-24 07:48 | DIS-2 ---
DATE OF ADMISSION: 01/19/2018 DATE OF DISCHARGE: 01/23/2018 ADMITTING ATTENDING: Pippa Martinez M.D. DISCHARGE ATTENDING: Kody Porras M.D. CONSULTS: Hematology/Oncology, Dr. Cornejo. PROCEDURES: Chest x-ray, no active cardiopulmonary abnormalities are demonstrated. Chest CT/abdomen /pelvis. IMPRESSION: 1. Normal spleen size. No evidence of any significant adenopathy of the chest or abdomen. 2. Coronary artery calcifications. Other incidental findings as noted. COLONOSCOPY/EGD. IMPRESSION: 1. Everted tissue at the appendiceal orifice consistent with inverted appendix; however discoloratio n was concerning for other process, status post biopsies. 2. Mild darkening of the entire colonic mucosa. No leopard skin pattern consistent with mild melano sis coli. 3. Four 2 to 4 mm transverse colon polyps, status post combination of biopsy/forceps and cold snare polypectomy. 4. Two 3 to 4 mm sigmoid colon polyps, status post combination of biopsy forceps and cold snare poly pectomy. 5. Internal or external hemorrhoids. 6. No etiology for the patient's anemia was seen during this portion of the examination. PRIMARY DIAGNOSIS: Anemia. SECONDARY DIAGNOSES: 1. Pneumonia. 2. Chronic obstructive pulmonary disease exacerbation. 3. Elevated troponin. 4. Hypertension. 5. Hyperlipidemia. 6. Hyperglycemia. DISCHARGE MEDICATIONS: 1. Clonidine 0.2 mg 1 tab p.o. t.i.d. 2. Dyazide 1 tab p.o. daily. 3. Pravastatin 1 tab p.o. at bedtime. 4. Amlodipine besylate/benazepril 1 cap p.o. daily. 5. Folic acid 1 mg p.o. daily. 6. Levaquin 750 mg p.o. daily. 7. Prednisone 40 mg p.o. daily. DISCONTINUED MEDICATIONS: None. HISTORY OF PRESENT ILLNESS AND HOSPITAL COURSE: Mr. Sanchez presented to the ED with continued shortn ess of breath with activity and nonproductive cough after being treated for community-acquired pneumo vicente with azithromycin as outpatient. He had some nonbloody diarrhea about a week ago, but denies any chest pain, palpitations, syncope, weakness, fever, chills, abdominal pain or melena. He has never had a colonoscopy. During ED stay, it was determined that he had hemoglobin of 5.2. At that time, i t was agreed upon that surgery for a cause of the anemia was most necessary and treatment is communit y-acquired pneumonia and COPD that were treated with success as well. Continue treatment as outpatie nt. In regards to the anemia, upper and lower scopes were done by GI to search for possible bleeding . Lab results were mostly normal, indicating a macrocytic anemia. Hematology was consulted and advi sed that it was most likely hemolytic in nature. Electrophoresis ordered and still pending. I spoke with Hematology determined that outpatient workup was consistent as his hemoglobin had risen above 8 and was stable at that level. DISPOSITION: Stable. DISCHARGE INSTRUCTIONS: 1. Location: Home. 2. Diet: Heart healthy. 3. Activity: As tolerated. 4. Follow up with Dr. Cornejo in 7 days and PCP, Dr. Zamora within 7 days as well.
--- NOTE | 2018-01-24 13:29 | EKG ---
Test Reason : ANEMIA Blood Pressure : / mmHG Vent. Rate : 109 BPM Atrial Rate : 109 BPM P-R Int : 164 ms QRS Dur : 092 ms QT Int : 364 ms P-R-T Axes : 057 044 007 degrees QTc Int : [address] depression, consider subendocardial injury Abnormal ECG Confirmed by TEGAN LOPEZ DO ([id number]), editor managing newspaper RAUL MCQUEEN ([id number]) on 01/24/2018 1:29:11 PM Referred By: Confirmed By:TEGAN LOPEZ DO
[2018-01-24 14:29] LABS: A/G Ratio 0.9 (0.7-1.7); Albumin 3.2 g/dL (2.9-4.4); Alpha 1 0.5 g/dL (0.0-0.4); Alpha 2 0.9 g/dL (0.4-1.0); Beta 1.2 g/dL (0.7-1.3); Gamma 0.8 g/dL (0.4-1.8); Globulin, Total 3.5 g/dL (2.2-3.9); M-Spike Not Observed g/dL (Not Observed)
== END 2018-01-23 14:57 | disposition home or self-care (01) | DRG 811 ==
LOC: ERS 10:21 → 2NO 13:43
PROVIDERS: ADMIT Family Medicine; ATTEND Family Medicine
PROC: 30233N1 Transfusion of Nonautologous Red Blood Cells into Peripheral Vein, Percutaneous Approach (ICD-10-PCS; 2018-01-19)
PROC: 0DB98ZX Excision of Duodenum, Via Natural or Artificial Opening Endoscopic, Diagnostic (ICD-10-PCS; principal; 2018-01-20)
PROC: 0DBH8ZX Excision of Cecum, Via Natural or Artificial Opening Endoscopic, Diagnostic (ICD-10-PCS; 2018-01-20)
PROC: 0DBL8ZX Excision of Transverse Colon, Via Natural or Artificial Opening Endoscopic, Diagnostic (ICD-10-PCS; 2018-01-20)
PROC: 0DBN8ZX Excision of Sigmoid Colon, Via Natural or Artificial Opening Endoscopic, Diagnostic (ICD-10-PCS; 2018-01-20)
DX: D58.9 Hereditary hemolytic anemia, unspecified (principal); J18.9 Pneumonia, unspecified organism; J44.1 Chronic obstructive pulmonary disease with (acute) exacerbation; I24.8 Other forms of acute ischemic heart disease; J44.0 Chronic obstructive pulmonary disease with (acute) lower respiratory infection; I10 Essential (primary) hypertension; E78.5 Hyperlipidemia, unspecified; E87.5 Hyperkalemia; F17.210 Nicotine dependence, cigarettes, uncomplicated; Z79.899 Other long term (current) drug therapy; E11.65 Type 2 diabetes mellitus with hyperglycemia
CPT/HCPCS: 36415; 36430; 71045; 71260; 74160; 80053; 80061; 82247; 82248; 82274; 82553; 82607; 82728; 82746; 83010; 83021; 83540; 83550; 83615; 83880; 84145; 84165; 84439; 84443; 84484; 85014; 85018; 85025; 85046; 85060; 85379; 85610; 85730; 86803; 86850; 86880; 86900; 86901; 87040; 88305; 93005; 94640; 96365; 96367; 96376; C9113; J0692; J1940; J1956; J2001; J2704; J7050; J7506; J7620; P9016

== ENCOUNTER 2018-07-01 20:49 | Emergency (ER) | payer BC ==
[2018-07-01] MEDS ORDERED: Ibuprofen 800 MG TAB ONE (21:11)
[2018-07-01] MEDS ORDERED: Acetaminophen 500 MG TAB ONE ×2 (21:11)
--- NOTE | 2018-07-01 21:49 | RAD ---
PORTABLE UPRIGHT FRONTAL CHEST RADIOGRAPH: 07/01/2018 HISTORY: Cough. COMPARISON: 01/19/2018 FINDINGS: Multiple old left-sided rib fractures. No pneumothorax, pleural fluid, focal consolidation, or alveo lar edema. There is pulmonary vascular congestion with mild perihilar interstitial prominence. IMPRESSION: Mild pulmonary vascular congestion and perihilar interstitial prominence with no focal consolidation or alveolar edema. POS: [facility]
== END 2018-07-01 22:48 | disposition home or self-care (01) ==
LOC: ERS 20:49
DX: R05 Cough (principal); R50.9 Fever, unspecified; R06.02 Shortness of breath; I10 Essential (primary) hypertension; F17.210 Nicotine dependence, cigarettes, uncomplicated
CPT/HCPCS: 71045; 87804; 94640; J7620

== ENCOUNTER 2023-05-27 10:06 | Inpatient (IN) | payer BC, MEDICARE, OTHER ==
[2023-05-27] MEDS ORDERED: cloNIDine 0.1 MG TAB ONE (10:53)
[2023-05-27] MEDS ORDERED: methylPREDNISolone Sod Succ/PF 125 MG/2 ML VIAL ONE (10:59)
[2023-05-27 11:27] LABS: #Monocytes 0.5 thou/uL (0.11-0.59); #Neutrophils 5.1 thou/uL (1.40-6.50); %Basophils 0.2 % (0.0-1.0); %Eosinophils 0.5 % (0.0-10.0); %Monocytes 8.1 % (0.0-10.0); %Neutrophils 82.5 % (42.0-75.0); Hematocrit 39.5 % (42.0-52.0); Hemoglobin 13.7 g/dL (14.0-18.0); Mean Corpuscular HGB CONC 34.7 g/dL (32.0-36.0); Mean Corpuscular Hemoglobin 31.4 pg (27.0-31.0); Mean Corpuscular Volume 90.6 fl (78.0-98.0); Mean Platelet Volume 8.8 fL (7.4-10.4); Platelet Count 130 10x3/uL (130-400); RBC Distribution Width 14.6 % (11.5-14.5); Red Blood Cell (RBC) Count 4.36 mill/uL (4.70-6.10); White Blood Cell (WBC) Count 6.2 10x3/uL (4.8-10.8)
[2023-05-27] MEDS ORDERED: Albuterol 2.5 MG (0.5 mL) NEB ONE (11:30)
[2023-05-27] MEDS ORDERED: Ipratropium/Albuterol 3 ML NEB ONE ×2 (11:31→14:01)
[2023-05-27 11:49] LABS: ALT (SGPT) 20 U/L (8-55); AST (SGOT) 20 U/L (5-34); Albumin 4.3 g/dL (3.4-4.8); Alkaline Phosphatase 67 U/L (40-110); Anion Gap 13 mmol/L (10-20); BUN (Urea Nitrogen) 8 mg/dL (8.4-25.7); Bilirubin, Total 0.4 mg/dL (0.2-1.2); Calc. Creatinine Clearance 0 mL/min (70-130); Calcium 9.2 mg/dL (7.8-10.44); Carbon Dioxide 26 mmol/L (23-31); Chloride 87 mmol/L (98-107); Estimated GFR 99; Globulin 3.6 g/dL (2.4-3.5); Glucose 134 mg/dL (80-115); Potassium 3.9 mmol/L (3.5-5.1); Protein, Total 7.9 g/dL (5.8-8.1); Sodium 122 mmol/L (136-145)
[2023-05-27 14:16] LABS: Magnesium 1.5 mg/dL (1.6-2.6)
[2023-05-27] MEDS ORDERED: Calcium Carbonate 500 MG ChewTAB PO PRN (14:54)
[2023-05-27] MEDS ORDERED: Senokot S 8.6-50 MG TAB PO PRN (14:54)
[2023-05-27] MEDS ORDERED: Ondansetron PF 4 MG/2 ML Vial IVP PRN (14:54)
[2023-05-27] MEDS ORDERED: Magnesium 2 GM/50 ML BAG (IN WATER) ONE (15:52)
[2023-05-27] MEDS: Magnesium Sulfate In Water 4 GM in Premix 1 BAG IVPB SCH (18:23)
[2023-05-27] MEDS: Sodium Chloride 0.9% 1,000 ML IV SCH (18:24)
[2023-05-27] MEDS: Doxycycline 100 MG CAP PO SCH ×2 (18:24→21:36)
[2023-05-27] MEDS: methylPREDNISolone Sod Succ 40 MG VIAL IVP SCH (18:24)
[2023-05-27] MEDS: cloNIDine 0.2 MG TAB PO SCH (18:24)
[2023-05-27] MEDS: hydrALAZINE 25 MG TAB PO SCH (19:09)
[2023-05-27 19:39] VITALS: BMI 39.2
[2023-05-27 19:39] LABS: Anion Gap 18 mmol/L (10-20); BUN (Urea Nitrogen) 9 mg/dL (8.4-25.7); Calc. Creatinine Clearance 0 mL/min (70-130); Calcium 9.3 mg/dL (7.8-10.44); Carbon Dioxide 19 mmol/L (23-31); Chloride 89 mmol/L (98-107); Estimated GFR 88; Glucose 268 mg/dL (80-115); Potassium 3.6 mmol/L (3.5-5.1); Sodium 122 mmol/L (136-145)
[2023-05-27] MEDS: Atorvastatin Calcium 10 MG TAB PO SCH (20:08)
[2023-05-28] MEDS ORDERED: Amlodipine 5 mg/Benazepril 20 mg CAP PO SCH (00:15)
[2023-05-28 00:16] LABS: SARS-CoV-2 NAA Rapid Test Not Detected (NotDetected)
[2023-05-28] MEDS: Labetalol HCl 100 MG/20 ML VIAL SLOW IVP SCH (00:28)
[2023-05-28 04:59] LABS: #Monocytes 0.3 thou/uL (0.11-0.59); #Neutrophils 5.2 thou/uL (1.40-6.50); %Lymphocytes 6.2 % (21.0-51.0); %Monocytes 5.2 % (0.0-10.0); %Neutrophils 87.8 % (42.0-75.0); Hematocrit 39.4 % (42.0-52.0); Hemoglobin 13.7 g/dL (14.0-18.0); Mean Corpuscular HGB CONC 34.8 g/dL (32.0-36.0); Mean Corpuscular Hemoglobin 30.9 pg (27.0-31.0); Mean Corpuscular Volume 88.9 fl (78.0-98.0); Mean Platelet Volume 8.7 fL (7.4-10.4); Platelet Count 129 10x3/uL (130-400); RBC Distribution Width 14.3 % (11.5-14.5); Red Blood Cell (RBC) Count 4.43 mill/uL (4.70-6.10); White Blood Cell (WBC) Count 5.9 10x3/uL (4.8-10.8)
[2023-05-28 05:21] LABS: ALT (SGPT) 20 U/L (8-55); AST (SGOT) 21 U/L (5-34); Albumin 4.2 g/dL (3.4-4.8); Alkaline Phosphatase 64 U/L (40-110); Anion Gap 13 mmol/L (10-20); BUN (Urea Nitrogen) 12 mg/dL (8.4-25.7); Bilirubin, Total 0.3 mg/dL (0.2-1.2); Calc. Creatinine Clearance 148 mL/min (70-130); Calcium 8.9 mg/dL (7.8-10.44); Carbon Dioxide 25 mmol/L (23-31); Chloride 92 mmol/L (98-107); Estimated GFR 98; Globulin 3.2 g/dL (2.4-3.5); Glucose 183 mg/dL (80-115); Magnesium 1.9 mg/dL (1.6-2.6); Potassium 3.9 mmol/L (3.5-5.1); Protein, Total 7.4 g/dL (5.8-8.1); Sodium 126 mmol/L (136-145)
[2023-05-28] MEDS: Acetaminophen 325 MG TAB PO PRN (07:09)
[2023-05-28] MEDS: Folic Acid 1 MG TAB PO SCH (07:43)
[2023-05-28] MEDS: Amlodipine 5 mg/Benazepril 20 mg CAP PO SCH (07:43)
[2023-05-28] MEDS: hydrALAZINE 25 MG TAB PO SCH (08:54)
[2023-05-28] MEDS: Enoxaparin 40 MG (0.4 mL) SYRINGE SC SCH (08:55)
[2023-05-28] MEDS: Sodium Chloride 0.9% 1,000 ML IV SCH (15:13)
[2023-05-28 15:51] LABS: Anion Gap 12 mmol/L (10-20); BUN (Urea Nitrogen) 16 mg/dL (8.4-25.7); Calc. Creatinine Clearance 127 mL/min (70-130); Carbon Dioxide 24 mmol/L (23-31); Chloride 96 mmol/L (98-107); Estimated GFR 92; Glucose 158 mg/dL (80-115); Potassium 4.5 mmol/L (3.5-5.1); Sodium 127 mmol/L (136-145)
[2023-05-29 06:01] LABS: #Monocytes 0.7 thou/uL (0.11-0.59); #Neutrophils 8.4 thou/uL (1.40-6.50); %Basophils 0.1 % (0.0-1.0); %Lymphocytes 5.9 % (21.0-51.0); %Monocytes 7.6 % (0.0-10.0); %Neutrophils 85.7 % (42.0-75.0); Hemoglobin 14.7 g/dL (14.0-18.0); Mean Corpuscular HGB CONC 34.2 g/dL (32.0-36.0); Mean Corpuscular Volume 90.7 fl (78.0-98.0); Mean Platelet Volume 8.6 fL (7.4-10.4); Platelet Count 127 10x3/uL (130-400); RBC Distribution Width 15.1 % (11.5-14.5); Red Blood Cell (RBC) Count 4.74 mill/uL (4.70-6.10); White Blood Cell (WBC) Count 9.8 10x3/uL (4.8-10.8)
[2023-05-29 06:25] LABS: Anion Gap 11 mmol/L (10-20); BUN (Urea Nitrogen) 18 mg/dL (8.4-25.7); Calc. Creatinine Clearance 139 mL/min (70-130); Calcium 9.2 mg/dL (7.8-10.44); Carbon Dioxide 25 mmol/L (23-31); Chloride 97 mmol/L (98-107); Estimated GFR 96; Glucose 157 mg/dL (80-115); Magnesium 2.3 mg/dL (1.6-2.6); Potassium 4.4 mmol/L (3.5-5.1); Sodium 129 mmol/L (136-145)
[2023-05-29] MEDS: cloNIDine 0.2 MG TAB PO SCH (14:39)
[2023-05-29] MEDS: hydrALAZINE 25 MG TAB PO SCH (14:39)
[2023-05-29] MEDS: predniSONE 20 MG TAB PO SCH (17:49)
[2023-05-29] MEDS: Famotidine 20 MG TAB PO SCH (21:29)
[2023-05-29] MEDS: Benzonatate 100 MG CAP PO PRN (21:37)
[2023-05-29] MEDS: Ipratropium/Albuterol 3 ML NEB NEB PRN (22:00)
[2023-05-30 05:47] LABS: Anion Gap 13 mmol/L (10-20); BUN (Urea Nitrogen) 20 mg/dL (8.4-25.7); Calc. Creatinine Clearance 142 mL/min (70-130); Calcium 8.5 mg/dL (7.8-10.44); Carbon Dioxide 25 mmol/L (23-31); Chloride 97 mmol/L (98-107); Estimated GFR 97; Glucose 124 mg/dL (80-115); Potassium 4.2 mmol/L (3.5-5.1); Sodium 131 mmol/L (136-145)
[2023-05-30 08:20] VITALS: BP 145/78; TEMP 97.7
== END 2023-05-30 14:17 | disposition home or self-care (01) | DRG 191 ==
LOC: SUATTDRO 10:06 → ERS 10:06 → MSONC 15:40 → OBSVTOIN 05-29 09:18
PROVIDERS: ADMIT Internal Medicine; ATTEND Internal Medicine
DX: J44.1 Chronic obstructive pulmonary disease with (acute) exacerbation (principal); E87.1 Hypo-osmolality and hyponatremia; I10 Essential (primary) hypertension; D69.6 Thrombocytopenia, unspecified; E87.6 Hypokalemia; D53.9 Nutritional anemia, unspecified; E78.5 Hyperlipidemia, unspecified; E83.42 Hypomagnesemia; F17.210 Nicotine dependence, cigarettes, uncomplicated; Z79.899 Other long term (current) drug therapy; Z71.6 Tobacco abuse counseling; Z11.52 Encounter for screening for COVID-19
CPT/HCPCS: 36415; 71045; 80048; 80053; 83605; 83735; 83880; 85025; 87040; 93005; 94640; 96372; 96374; 96375; 96376; G0378; J1650; J2920; J2930; J3475; J7050; J7512; J7611; J7620; U0002